=== PATIENT | female | born 1935 | race Hispanic/Latino ===

== ENCOUNTER → 2017-10-03 | Outpatient (CLI) | payer OTHER | END | disposition home or self-care (01) | LOC: RAH 13:24 | PROVIDERS: ATTEND Internal Medicine | DX: M79.89 Other specified soft tissue disorders (principal); R22.41 Localized swelling, mass and lump, right lower limb | CPT/HCPCS: 93971 ==

== ENCOUNTER 2020-03-23 16:38 | Emergency (ER) | payer OTHER ==
[2020-03-23 18:07] LABS: BASOPHILS % (AUTO) 0.2 % (0.0-5.0); EOSINOPHILS % (AUTO) 0.2 % (0.0-8.0); HEMATOCRIT 38.2 % (36-48); LYMPHOCYTES % (AUTO) 7.4 % (21.0-51.0); MEAN CORPUSCULAR HEMOGLOBIN 30.2 pg (27.0-33.0); MEAN CORPUSCULAR HGB CONC 31.4 g/dL (32.0-36.0); MONOCYTES % (AUTO) 4.7 % (3.0-13.0); PLATELET COUNT (AUTO) 167 K/uL (130-400); RED BLOOD CELL COUNT(AUTO) 3.98 MIL/uL (4.00-5.50); RED CELL DISTRIBUTION WIDTH 12.2 % (11.0-15.5); WHITE BLOOD COUNT (AUTO) 9.8 K/uL (4.8-10.8)
[2020-03-23 18:40] LABS: CREATININE 1.1 mg/dL (0.5-1.5); POTASSIUM 3.7 mmol/L (3.5-5.1)
[2020-03-23 18:45] LABS: ALBUMIN 3.7 g/dL (3.5-5.0); BILIRUBIN,TOTAL 1.8 mg/dL (0.2-1.0); INR 0.95 (0.85-1.15); PARTIAL THROMBOPLASTIN TIME 22.6 SEC (26.3-35.5); PROTHROMBIN TIME 10.3 SEC (9.6-11.6)
[2020-03-23] MEDS ORDERED: ACETAMINOPHEN 325 MG TAB ONE (19:03)
[2020-03-23] MEDS ORDERED: LIDOCAINE 5% TOPICAL PATCH TP ONE (19:03)
== END 2020-03-23 20:35 | disposition home or self-care (01) ==
LOC: EDH 16:38
DX: S73.192A Other sprain of left hip, initial encounter (principal); M48.54XA Collapsed vertebra, not elsewhere classified, thoracic region, initial encounter for fracture; M54.5 Low back pain; E11.9 Type 2 diabetes mellitus without complications; I10 Essential (primary) hypertension; E78.00 Pure hypercholesterolemia, unspecified; Z90.710 Acquired absence of both cervix and uterus; Z88.0 Allergy status to penicillin; Z88.6 Allergy status to analgesic agent; W18.39XA Other fall on same level, initial encounter; Y93.01 Activity, walking, marching and hiking; Y92.098 Other place in other non-institutional residence as the place of occurrence of the external cause; Y99.8 Other external cause status
CPT/HCPCS: 36415; 71045; 73502; 74176; 80053; 82550; 84484; 85025; 85610; 85730; 93005

== ENCOUNTER → 2020-08-19 | Outpatient (CLI) | payer OTHER | END | disposition home or self-care (01) | LOC: RAH 10:07 | PROVIDERS: ATTEND Internal Medicine | DX: N28.1 Cyst of kidney, acquired (principal); K76.89 Other specified diseases of liver; K80.20 Calculus of gallbladder without cholecystitis without obstruction; E80.4 Gilbert syndrome; E80.6 Other disorders of bilirubin metabolism | CPT/HCPCS: 76700 ==